=== PATIENT | male | born 1960 | race Native Hawaiian/Other Pacific Islander ===

== ENCOUNTER 2016-10-10 12:51 | Emergency (ER) | payer OTHER ==
[~2016-10-10] VITALS: Ht 177.8 cm; Wt 108.0 kg
[2016-10-10 13:19] LABS: PLATELET COUNT 243 K/uL (142-355)
[2016-10-10 13:26] LABS: POTASSIUM 4.3 mmol/L (3.6-5.2)
[2016-10-10] MEDS ORDERED: ATEN25TA21 PO (13:53)
[2016-10-10] MEDS ORDERED: ALLO300T23 PO (13:54)
[2016-10-10] MEDS ORDERED: TERAZOSIN10 MG OR (13:54)
[2016-10-10] MEDS ORDERED: CITALOPRAM20 MG PO (13:56)
[2016-10-10] MEDS ORDERED: INDOMETHACIN25 MG PO (13:56)
[2016-10-10] MEDS ORDERED: HYDR10TA47 PO (13:57)
[2016-10-10] MEDS ORDERED: CYCL10TA35 PO (13:57)
[2016-10-10] MEDS ORDERED: PRAVACHOL20 MG PO (14:00)
[2016-10-10 15:05] VITALS: BP 124/81; TEMP 98.1
== END 2016-10-10 15:15 | disposition home or self-care (01) ==
LOC: ED 12:51
DX: N20.0 Calculus of kidney (principal); N23 Unspecified renal colic
CPT/HCPCS: 36415; 80053; 81000; 85027; 99283

== ENCOUNTER 2018-11-17 11:57 | Emergency (ER) | payer OTHER ==
[~2018-11-17] VITALS: Ht 180.3 cm; Wt 111.1 kg
[~2018-11-17 11:57] MED LIST: ALLO300T23 PO; ATEN25TA21 PO; CITALOPRAM20 MG PO; CYCL10TA35 PO; HYDR10TA47 PO; INDOMETHACIN25 MG PO; PRAVACHOL20 MG PO; TERAZOSIN10 MG OR
[2018-11-17 12:08] VITALS: TEMP 98.1
[2018-11-17 13:25] VITALS: BP 114/71
== END 2018-11-17 13:25 | disposition home or self-care (01) ==
LOC: ED 11:57
DX: M19.011 Primary osteoarthritis, right shoulder (principal)
CPT/HCPCS: 99282

== ENCOUNTER 2019-02-08 08:20 | Outpatient (CLI) | payer OTHER ==
[2019-02-08 09:33] LABS: PLATELET COUNT 280 K/uL (142-355)
[2019-02-08 10:36] LABS: POTASSIUM 4.6 mmol/L (3.6-5.2)
== END 2019-02-08 19:07 | disposition home or self-care (01) ==
LOC: LABW 08:20 → US 09:00 → LABW 19:07
PROVIDERS: Internal Medicine
DX: N18.4 Chronic kidney disease, stage 4 (severe) (principal); N40.0 Benign prostatic hyperplasia without lower urinary tract symptoms; M10.09 Idiopathic gout, multiple sites; N25.81 Secondary hyperparathyroidism of renal origin
CPT/HCPCS: 36415; 80053; 81000; 82306; 82330; 82570; 83735; 83970; 84100; 84153; 84155; 84550; 85027

== ENCOUNTER 2020-02-13 13:12 | Emergency (ER) | payer OTHER ==
[~2020-02-13] VITALS: Ht 180.3 cm; Wt 111.1 kg
[2020-02-13 14:25] LABS: PLATELET COUNT 240 K/uL (142-355)
[2020-02-13 14:30] LABS: POTASSIUM 4.4 mmol/L (3.6-5.2); SODIUM 135 mmol/L (136-145)
[2020-02-13 19:29] VITALS: BP 101/76; TEMP 98.2
== END 2020-02-13 19:29 | disposition home or self-care (01) ==
LOC: ED 13:12
PROVIDERS: Family Medicine
DX: R41.0 Disorientation, unspecified (principal); I95.89 Other hypotension; G89.29 Other chronic pain; N28.9 Disorder of kidney and ureter, unspecified; Z79.891 Long term (current) use of opiate analgesic
CPT/HCPCS: 80053; 81000; 82550; 84484; 85027; 93005; 96360; 99284

== ENCOUNTER 2020-08-13 13:51 | Outpatient (CLI) | payer OTHER | END 2020-08-13 22:43 | disposition home or self-care (01) | LOC: RAD 13:51 | PROVIDERS: ATTEND Nurse Practitioner Family | DX: M79.672 Pain in left foot (principal); M79.671 Pain in right foot; I10 Essential (primary) hypertension; E03.8 Other specified hypothyroidism; K21.9 Gastro-esophageal reflux disease without esophagitis; E78.49 Other hyperlipidemia ==

== ENCOUNTER 2021-01-14 08:27 | Outpatient (CLI) | payer OTHER | END 2021-01-14 20:58 | disposition home or self-care (01) | LOC: MRI 08:27 | PROVIDERS: ATTEND Physical Medicine & Rehabilitation Pain Medicine | DX: M54.16 Radiculopathy, lumbar region (principal) ==

== ENCOUNTER 2021-08-14 09:01 | Outpatient (CLI) | payer OTHER | END 2021-08-14 19:17 | disposition home or self-care (01) | LOC: US 09:01 | PROVIDERS: ATTEND Internal Medicine | DX: N18.4 Chronic kidney disease, stage 4 (severe) (principal) ==

== ENCOUNTER 2021-09-07 05:23 | Emergency (ER) | payer OTHER ==
[~2021-09-07] VITALS: Ht 180.3 cm; Wt 98.4 kg
[2021-09-07 05:30] VITALS: TEMP 98
[2021-09-07 06:07] LABS: PLATELET COUNT 222 K/uL (142-355)
[2021-09-07 06:20] LABS: POTASSIUM 4.3 mmol/L (3.6-5.2)
[2021-09-07 07:50] VITALS: BP 112/69
== END 2021-09-07 07:50 | disposition home or self-care (01) ==
LOC: ED 05:23
PROVIDERS: Family Medicine
DX: N20.0 Calculus of kidney (principal); R73.9 Hyperglycemia, unspecified; N18.9 Chronic kidney disease, unspecified; Z87.442 Personal history of urinary calculi
CPT/HCPCS: 80053; 81000; 82150; 83690; 85027; 96360; 96375; 99284; J1885; J2405

== ENCOUNTER 2022-01-09 19:31 | Emergency (ER) | payer OTHER ==
[~2022-01-09] VITALS: Ht 180.3 cm; Wt 104.3 kg
[2022-01-09 21:10] VITALS: BP 107/73; TEMP 97.7
== END 2022-01-09 21:10 | disposition home or self-care (01) ==
LOC: ED 19:31
DX: S09.8XXA Other specified injuries of head, initial encounter (principal); S00.01XA Abrasion of scalp, initial encounter; W22.8XXA Striking against or struck by other objects, initial encounter; Y92.89 Other specified places as the place of occurrence of the external cause
CPT/HCPCS: 96372; 99283; J0690; J1885

== ENCOUNTER 2022-06-04 07:30 | Outpatient (CLI) | payer OTHER | END 2022-06-04 20:54 | disposition home or self-care (01) | LOC: LABW 07:30 | PROVIDERS: ATTEND Internal Medicine | DX: M10.09 Idiopathic gout, multiple sites (principal) | CPT/HCPCS: 36415; 82955; 84550; 85041 ==

== ENCOUNTER 2022-11-10 09:09 | Outpatient (CLI) | payer OTHER | END 2022-11-10 19:36 | disposition home or self-care (01) | LOC: LABW 09:09 | PROVIDERS: ATTEND Internal Medicine | DX: M10.09 Idiopathic gout, multiple sites (principal) | CPT/HCPCS: 36415; 84550 ==